=== PATIENT | female | born 1985 | race Native Hawaiian/Other Pacific Islander ===

== ENCOUNTER 2020-02-11 10:53 | Inpatient (IN) | payer OTHER ==
[2020-02-11] VITALS (23 sets, daily range): BP systolic 102–1114; BP diastolic 60–88; TEMP 97.5–99.1; Ht 177.8 cm; Wt 70.3 kg
[~2020-02-11] VITALS: Ht 177.8 cm; Wt 70.3 kg
[2020-02-11 11:25] LABS: PLATELET COUNT 346 K/uL (152-353)
[2020-02-11 11:34] LABS: POTASSIUM 5.1 mmol/L (3.6-5.2); SODIUM 136 mmol/L (136-145)
[2020-02-11 11:40] LABS: PARTIAL THROMBOPLASTIN TIME 28.3 SECONDS (24.5-33.6)
--- NOTE | 2020-02-11 16:30 | NUR ---
PT FROM ER TO RM 129/ PCU PER MEGA MERINO RN. DR HOPSON & BEE HASSAN RN/ CHARGE NURSE IN WITH PT. PT WITH R SIDE OF FACE APPEARS TO BE DRAWN, COLOR PALE, PT NON RESPONSIVE. PT MOVED IMMEDIATELY VIA STRETCHER TO ICU2 @2878.
--- NOTE | 2020-02-11 16:40 | NUR ---
PT MOVED TO BED FROM STRETCHER & PT APPEARED TO WAKE UP & MUMBLE SOMETHING. HUGO TO BSD WITH CLEAR YELLOW URINE. PT WITH BRUISES TO ARMS & R HIP. LARGE RED CIRCULAR AREA TO RT ELBOW & R POSTERIOR SHOULDER. PT MOVING ARMS & LOOKING AROUND.TRIES TO SPEAK & NODS. ATTEMPTED IV STICK R SHOULDER PER BEE HASSAN RN, UNSUCSESSFUL. CHECKED PRESENT IV. WORKING AFTER FLUSH. PT COUGHING & HAD TO BE SUCTIONED THICK ORAL SECRETIONS, VANG IN COLOR.
--- NOTE | 2020-02-11 17:19 | NUR ---
pt in bed speech rambling. ASKED'CAN YOU JUST WASH MY PAJAMAS'. PT REACHING OVER HER BODY TOWARD SOMETHING ONLE SEEN BY HER. SPEECH SLOW. INFORMED ME HER NAME WAS' SIMA COLLADO, I'M ALLERGIC TO BETADINE'. WHEN ASKED IF SHE HAD JUST GOTTEN OUT OF THE HOSPITAL, PT SAID 'YES'. WHEN ASKED WHAT TOWN, PT STATES' [place]'. HUGO TO BSD WITH CL YELLOW URINE. PT WITH 100% O2 SAT ON O2 AT 2L/NC.
--- NOTE | 2020-02-11 18:05 | NUR ---
DR HOPSON BACK IN TO SEE PT. PT MEDICATED WITH ROMAZICON 0.2MG PER DR'S ORDER. PT MORE ALERT AFTER DISCUSSED HER MASTECTOMY IN JOINTED PHRASES. NO NOTED 'DRAWING TO MOUTH' AT THIS TIME. MOUTH CARE PER NURSE TECH.
--- NOTE | 2020-02-11 20:00 | NUR ---
PT IS LYING IN BED, OPENS EYES AT TIMES, SPEECH IS SLURRED, PT IS CONFUSED, DISORIENTED, MOUTH IS SEVERELY DRY, OFFERED PT GLYCERIN SWABS FOR DRY MOUTH. HUGO TO BSD WITH LIGHT YELLOW URINE IN DRAINAGE BAG, IVF INFUSING WITHOUT DIFFICULTY TO RIGHT UPPER ARM. IN ATTEMPT TO LOCATE PTS FAMILY, PT GAVE US A FRIENDS NAME AND NUMBER, ACCESS ANALYST CALLED FRIEND, FRIEND WENT TO PTS FATHERS HOUSE, AND CALLED BACK TO THE HOSPITAL. FAMILY TO ARRIVE A LITTLE LATER TONIGHT.
--- NOTE | 2020-02-11 21:25 | NUR ---
PTS FATHER, SON AND STEP MOM CAME TO VISIT, BROUGHT A BAG WITH CLOTHING AND SHOES FOR WHEN PATIENT IS DISCHARGED. DINKEY ENGINE FIRER/FIREMAN CALLED [facility] AND SPOKE TO MYKE ABOUT PATIENTS SITUATION, RECOMMENDATIONS FROM [facility] INCLUDE- DO NOT GIVE ANYMORE ROMAZICON, FOCUS ON MIRROR PAINTER AND RESPIRATORY DEPRESSION AND SEIZURES, GIVE SUPPORTIVE CARE, AND TREAT SYMPTOMS, LABS NEEDED- SALICYLATES AND ACETAMINOPHEN
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
--- NOTE | 2020-02-11 23:00 | NUR ---
PT IS NOW AWAKE MORE AND MORE ORIENTED X3. SHE STATED THAT HER RIGHT ARM IS NOT TO BE USED FOR NEEDLE STICKS, IV'S OR BLOOD PRESSURES BECAUSE SHE HAD HER LYMPH NODES REMOVED WHEN SHE HAD A MASTECTOMY ABOUT 3 YEARS AGO. RESEARCH GENETICIST ATTEMPTED NEW IV SITE TO LEFT ARM AND LEFT FOOT WITH NO SUCCESS, RESEARCH GENETICIST CALLED DR STINSON, ORDERS RECEIVED TO LEAVE IV TO RT WRIST, AND IVF RATE AT 75ML/HR.
--- NOTE | 2020-02-11 23:30 | NUR ---
PT THINKS STAFF IS GOSSIPING ABOUT HER, WANTS TO SPEAK TO NURSE SUPERVISOR TOY ASSEMBLY, ASSURED HER THAT STAFF IS NOT DOING THAT.
[2020-02-12] VITALS (16 sets, daily range): BP systolic 94–115; BP diastolic 55–86; TEMP 98.1–98.6
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
--- NOTE | 2020-02-12 01:25 | NUR ---
PT STILL C/O PAIN TO LEFT WRIST EVERY TIME IT IS TOUCHED, SKIN IS RED, AND WARM TO TOUCH, SLIGHT SWELLING NOTED. CORPORATE DEVELOPMENT OFFICER CALLED DR STINSON, NEW ORDER FOR XRAY OF LEFT WRIST, URIC ACID LEVEL, TORADOL FOR PAIN, AND SOLUMEDROL. ORDERS CARRIED OUT. WRIST XRAY IS NEGATIVE, URIC ACID IS NORMAL
--- NOTE | 2020-02-12 02:00 | NUR ---
PT IS MORE AWAKE, ALERT AND ORIENTED X3, ASKING TO USE THE BEDSIDE COMMODE FOR A BM. PT UP TO BSC WITH ASSIST WITHOUT DIFFICULTY, NO BM NOTED. @ 0215 PT WAS GETTING BACK IN BED, PT REQUESTED HUGO TO BE REMOVED. HUGO DISCONTINUED, 10ML SALINE REMOVED FROM BULB, NAD NOTED, 1800ML CLEAR YELLOW URINE IN DRAINAGE BAG. BEDSIDE COMMODE AVAILABLE, WITH ASSIST.
--- NOTE | 2020-02-12 03:50 | NUR ---
PT STILL C/O PAIN TO LEFT WRIST, AND UNDERNEATH RIGHT BREAST. PT STATES THAT "TORADOL DOES NOTHING FOR MY PAIN" "I WANT SOMETHING ELSE FOR PAIN". MANAGER BANQUET CALLED DR STINSON PER PATIENTS REQUEST, HE STATED "I'M NOT GIVING HER ANY NARCOTICS", SO, NO NEW ORDERS FOR PAIN MEDICINE. PT FELL ASLEEP, AND IS NOT C/O AT THIS TIME
--- NOTE | 2020-02-12 08:00 | NUR ---
RECEIVED REPORT FROM CECILE VITALE RN. PATIENT IS NOTED RESTING QUIETLY WITH EYES CLOSED. SHIFT ASSESSMENT COMPLETED AT THIS TIME. IV 22G NOTED TO THE LEFT WRIST INFUSING NS AT 75 ML/HR. PATIENT IS LETHARGIC BUT DOES ANSWER QUESTIONS APPROPRIATELY.
--- NOTE | 2020-02-12 09:46 | NUR ---
PHYSICAL THERAPY IS HERE WITH PATIENT SCREENING PATIENT FOR SERVICES. PATIENT IS NOT DROWSY AND LETHARGIC BUT DOES ANSWER QUESTIONS APPROPRIATELY. PATIENT WAS ABLE TO STAND UP AND BEAR FULL WEIGHT ON THE RIGHT FOOT AND PARTIAL ON THE LEFT FOOT. PATIENT WALKED A FEW STEPS AND ASSISTED BACK TO BED BY PHYSICAL THERAPY. PATIENT IS CURRENTLY RESTING WITH EYES CLOSED.
--- NOTE | 2020-02-12 10:15 | NUR ---
PATIENT IS RESTING QUIETLY WITH EYES CLOSED AT THIS TIME. CURRENT FLUIDS GOING AT 75 ML/HR. BED LOCKED IN LOW POSITION. SIDE RAILS UP X2.
--- NOTE | 2020-02-12 11:12 | NUR ---
HERE TO SEE PATIENT. PATIENT IS NOTED DROWSY BUT ANSWERING QUESTIONS.
--- NOTE | 2020-02-12 11:12 | NUR ---
UNCLE IS HERE TO SEE PATIENT. PATIENT IS CURRENTLY GETTING A BREATHING TREATMENT. UNCLE AT THE BEDSIDE TALKING TO HIM. PATIENT WANTS TO GET UP AT THIS TIME BUT HE IS UNSTEADY AND FORGETS LIMITATION OF TREATMENT, PATIENT WAS TRYING TO PULL OFF BLOOD PRESSURE CUFF AND IV BUT HE WAS REDIRECTED FOR A SHORT PERIOD OF TIME.
--- NOTE | 2020-02-12 12:38 | NUR ---
PATIENT REPOSITIONED UP IN THE BED AND FOOD TRAY PLACED ON BEDSIDE TABLE BUT PATIENT STATED HE DID NOT WANT TO EAT ANY AT THIS TIME. SWEET TEA OFFERED AND PATIENT TOOK IN ABOUT 2 OZ OF SWEET TEA.
--- NOTE | 2020-02-12 13:45 | NUR ---
PATIENT IS RESTING WITH EYES CLOSED. PATIENT ENCOURGAED TO ATTEMPT TO GET UP IN THE SIDE OF THE BED AND AMBULATED. PATIENT STATES SHE FEELS LIKE HER BODY IS ACHING. PATEINT NOTED GOING BACK TO BED WITH EYES CLOSED.
--- NOTE | 2020-02-12 14:27 | NUR ---
PATIENT STATED SHE NEEDED TO USE THE BATHROOM. PATIENT DISCONNECTED FROM MONITOR AND IV FLUIDS. PATIENT WAS ABLE TO STAND UP ON TO THE SIDE OF THE BED AND USE WALKER TO AMBULATE TO THE BATHROOM, PATIENT STATES HER LEFT FOOT WAS SORE WHEN AMBULATING. LEFT FOOT ASSESSED AND NO OBVIOUS INJURY WAS NOTED. PATIENT DID VOID X 1 WITHOUT DIFFICULTY AND AMBULATED BACK TO THE BED WITHOUT ASSISTANCE.
--- NOTE | 2020-02-12 15:24 | NUR ---
PATIENT IS RESTING WITH EYES CLOSED AT THIS TIME.
--- NOTE | 2020-02-12 16:27 | NUR ---
PATIENT IS RESTING WITH EYES CLOSED AT THIS TIME. BED LOCKED IN LOW POSITION.
--- NOTE | 2020-02-12 17:15 | NUR ---
LAB HERE TO DRAW BLOOD. PATIENT IS GETTING TRANSFERRED TO THE MED/SURG FLOOR PER .
[2020-02-12 17:43] LABS: PLATELET COUNT 275 K/uL (152-353)
[2020-02-12 18:00] LABS: POTASSIUM 4.1 mmol/L (3.6-5.2)
--- NOTE | 2020-02-12 18:06 | NUR ---
CRITICAL LAB RESULTS CK 1342 ELEVATED AT THIS TIME FROM PREVIOUS. NOTIFIED AND NEW ORDER GIVEN FOR AN INCREASE IN FLUIDS.
--- NOTE | 2020-02-12 21:32 | NUR ---
PT WAS TRANSFERRED TO FLOOR VIA WC. REPORT WAS GIVEN TO KRISH NERI RN.
--- NOTE | 2020-02-12 22:19 | NUR ---
PT STATES TORADOL DID NOT HELP PAIN. REQUEST FOR ME TO CALL . ER DOC NOTIFIED AND ORDERED TO GIVE [id number] AND PHENERGAN 12.5 ONE TIME DOSE.
--- NOTE | 2020-02-12 22:56 | NUR ---
PT'S CHART STATES ALLERGY TO MORPHINE. PT STATES SHE IS NOT ALLERGIC TO MORPHINE. PT STATES SHE HAS RECIEVED MORPHINE SEVERAL TIMES WHILE GETTING CHEMO AND NO REACTION. CALLED MD IN ER TO VERIFY. DR CHANEL STATES OK TO GIVE.
--- NOTE | 2020-02-12 23:24 | NUR ---
MORPHINE SCANNED AND NURSE CHECKED VITALS BP LOW AT THIS TIME 96/57/ INSTRUCTED PT BP TOO LOW AT THIS TIME TO GIVE BUT WILL RE TAKE VITALS AND RE EVALUATE GIVING MORPHINT
--- NOTE | 2020-02-12 23:48 | NUR ---
BP RECHECKED 87/48. INSTRUCTED PT COULD NOT GIVE MORPHINE AT THIS TIME. PT REQUESTING ICE CREAM AND SITTING HIGH FOWLERS. WILL MONITOR.
[2020-02-13] VITALS: BP 96/57; TEMP 98.5
--- NOTE | 2020-02-13 00:53 | NUR ---
PT BP 93/62. PT STILL REQUESTING PAIN MEDS AT THIS TIME. WILL MONITOR CLOSELY.
[2020-02-13 04:00] VITALS: BP 90/40; TEMP 97.8
[2020-02-13 08:45] VITALS: BP 99/61; TEMP 97.7
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
[2020-02-13 12:23] VITALS: BP 95/58; TEMP 98.6
--- NOTE | 2020-02-13 13:16 | NUR ---
SPOKE WITH DR NICHOLSON CONCERNING PT STATUS AT THIS TIME. PT NOTED TO BE VOMITING AT SINK UPON ENTERING ROOM. REFER TO [facility] FOR INTERVENTION. NO NEW ORDERS GIVEN AT THIS TIME. WILL CONTINUE TO MONITOR.
--- NOTE | 2020-02-13 14:08 | NUR ---
VANDANA REPORTS TO NURSE CRITICAL LAB [facility] AT THIS TIME.
--- NOTE | 2020-02-13 14:09 | NUR ---
1333 LAB AT BEDSIDE DRAWING LABS. 1337 PATIENT CALLED TO NURSES STATION STATING SHE NEEDED TO SEE A NURSE. NURSE RESPONDED AND PT REPORTS BEING ALLERGIC TO LATEX AND A LATEX TOURNIQUET WAS APPLIED TO PT LEFT ARM FOR BLOOD DRAW. PT STATES " I FEEL LIKE MY THROAT IS CLOSING UP AND IM BREAKING OUT IN A RASH." NURSE IMMEDIATELY CONTACTED MD AT THIS TIME. 02 MONITOR PLACED. O2 NOTED TO BE 97% RA WITH A HR OF 91. 1342 DR NICHOLSON AT BEDSIDE SPEAKING WITH PATIENT ABOUT CONTINUITY OF CARE AND PATIENT WISHES. . PT ABLE TO ANSWER ALL QUESTIONS APPROPRIATELY AND RESPONDS VERBALLY. REFER TO [facility] FOR INTERVENTION. 1358 DR NICHOLSON STILL AT BEDSIDE. PT C/O NAUSEA AND IS NOTED TO BE VOMITING. DR NICHOLSON STATED TO NURSE TO GO AHEAD AND GIVE PHENERGEN AT THIS TIME. NURSE VERBALIZED UNDERSTANDING. WILL CONTINUE TO [facility].
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
[2020-02-13 16:43] VITALS: BP 110/68; TEMP 98.3
--- NOTE | 2020-02-13 17:35 | NUR ---
PT REPORTS SWOLLEN FINGERS AND PAIN TO HANDS. NURSE SPOKE WITH DR HOPSON AT THIS TIME. NEW ORDERS GIVEN AT THIS TIME. NURSE ALSO REPORTS THAT PATIENT CONTIUES TO HAVE NAUSEA AND VOMITING. MD NOTIFIED.
[2020-02-14 05:30] VITALS: BP 137/73; TEMP 98.3
[2020-02-14 08:28] VITALS: BP 109/70; TEMP 98.4
[2020-02-14 12:00] VITALS: BP 111/69; TEMP 98.5
--- NOTE | 2020-02-14 13:43 | NUR ---
1330 PER PT'S REQUEST PT'S DAD WAS CALLED AND CALL TRANSFERED TO HER ROOM.
[2020-02-14] MEDS ORDERED: FLUOXETINE20 MG PO (14:00)
[2020-02-14] MEDS ORDERED: QUET25TA2 PO (14:01)
--- NOTE | 2020-02-14 15:54 | NUR ---
1415 ALL DISCHARGE INSTRUCTIONS GIVEN AND EXPLAINED TO PT. PT'S FATHER AND FATHERS GIRLFRIEND AT BS AT TIME OF DISCHARGE. PT VOICED UNDERSTANDING. PT LEFT WITH FAMILY AMBULATORY. NO ACUTE DISTRESS NOTED.
--- NOTE | 2020-02-14 16:07 | NUR ---
LTE ENTRY 1330 RX'[facility] CALLED TO [facility] PER MD ORDERS. PT INFORMED AT TIME OF DISCHARGE.
== END 2020-02-14 14:44 | disposition home or self-care (01) | DRG 918 ==
LOC: ED 11:01 → EDBD 11:01 → MED/SURG 12:23 → ICU 12:23 → ED 16:25 → ICU 16:45 → MED/SURG 02-12 20:00
PROVIDERS: Internal Medicine; ADMIT Hospitalist
DX: T50.911A Poisoning by multiple unspecified drugs, medicaments and biological substances, accidental (unintentional), initial encounter (principal); M62.82 Rhabdomyolysis; Y92.89 Other specified places as the place of occurrence of the external cause; Z85.3 Personal history of malignant neoplasm of breast
CPT/HCPCS: 36600; 51702; 80053; 80307; 80320; 80329; 81000; 81002; 81025; 82550; 82553; 82805; 83880; 84484; 84550; 85027; 85610; 85730; 93005; 94760; 96360; 96361; 96375; 99285; J1200; J1650; J1885; J2270; J2405; J2550

== ENCOUNTER 2020-03-28 13:10 | Emergency (ER) | payer OTHER ==
[~2020-03-28] VITALS: Ht 177.8 cm; Wt 67.1 kg
[~2020-03-28 13:10] MED LIST: FLUOXETINE20 MG PO; QUET25TA2 PO
[2020-03-28 13:15] VITALS: BP 136/82; TEMP 97.3
[2020-03-28 13:46] LABS: PLATELET COUNT 287 K/uL (152-353)
[2020-03-28 13:53] LABS: POTASSIUM 3.5 mmol/L (3.6-5.2); SODIUM 140 mmol/L (136-145)
[2020-03-28 14:09] LABS: PARTIAL THROMBOPLASTIN TIME 25.4 SECONDS (24.5-33.6)
== END 2020-03-28 15:09 | disposition home or self-care (01) ==
LOC: ED 13:10
PROVIDERS: Family Medicine
DX: R07.89 Other chest pain (principal); S30.860A Insect bite (nonvenomous) of lower back and pelvis, initial encounter; W57.XXXA Bitten or stung by nonvenomous insect and other nonvenomous arthropods, initial encounter; Y92.89 Other specified places as the place of occurrence of the external cause
CPT/HCPCS: 80053; 80307; 82550; 83880; 84484; 85027; 85379; 85610; 85730; 93005; 96360; 96375; 99284; J1885; J2405; J2930